=== PATIENT | male | born 1950 | race Caucasian/White ===

== ENCOUNTER 2017-01-31 22:06 | Emergency (ER) | payer MEDICARE ==
[~2017-01-31] VITALS: Ht 180.3 cm; Wt 93.8 kg
[~2017-01-31 22:06] MED LIST: ASPIRIN LOW DOS81 MG OR; BAYER ASPIRIN E81 MG PO; FLAX OIL; FLEXERIL PO; LISINOPRIL10 MG; LORTAB 1010 MG PO; MEDDOSEPAK PO; METOPROL TAR25 MG PO; METOPROLOL TART50 MG OR; PRAVASTATIN20 MG; SAW PALMETT3 OR; ZESTRIL/PRI20 MG/TAB PO
[2017-01-31] MEDS ORDERED: LOPRESSOR25 MG PO (22:28)
[2017-01-31 23:10] VITALS: BP 144/86
== END 2017-01-31 23:10 | disposition home or self-care (01) ==
LOC: ED 22:06
DX: J02.9 Acute pharyngitis, unspecified (principal); Z79.899 Other long term (current) drug therapy; R59.0 Localized enlarged lymph nodes

== ENCOUNTER 2017-06-07 09:37 | Emergency (ER) | payer MEDICARE ==
[~2017-06-07] VITALS: Ht 180.3 cm; Wt 100.0 kg
[~2017-06-07 09:37] MED LIST changes: +LOPRESSOR25 MG PO; +MORPHINE SUL30 MG PO; +TAMSULOSIN0.4 MG PO
[2017-06-07 10:17] VITALS: BP 160/82
== END 2017-06-07 10:23 | disposition home or self-care (01) ==
LOC: ED 09:37
DX: R19.7 Diarrhea, unspecified (principal); R19.5 Other fecal abnormalities

== ENCOUNTER 2018-01-02 17:05 | Inpatient (IN) | payer MEDICARE ==
[~2018-01-02] VITALS: Ht 180.3 cm; Wt 97.0 kg
[~2018-01-02 17:05] MED LIST changes: +HEPARIN LOC1 UNIT/ML IV; +SAW PALMETTO1 CAP PO; -ZESTRIL/PRI20 MG/TAB PO; +ZESTRIL/PRIN5 MG/TA1 PO
[2018-01-02] MEDS ORDERED: ZITHROMAX Z-PA250 MG PO (18:03)
[2018-01-02 18:11] LABS: HEMATOCRIT 30.6 % (39.0-50.0); HEMOGLOBIN 9.9 g/dl (14.0-18.0); IMMATURE GRANULOCYTES 0.5 % (0.0-1.0); MEAN CELL VOLUME 77.5 fL CALC (80.0-100.0); MEAN CORPUSCULAR HGB 25.1 pG CALC (26.0-32.0); MEAN CORPUSCULAR HGB CONC 32.4 g/L CALC (32.0-36.0); NEUT# 8.89 thou/uL (1.82-7.42); RED BLOOD COUNT 3.95 mill/uL (4.70-6.10); RED CELL DISTRI WIDTH 13.5 % (11.5-15.5)
[2018-01-02 18:47] LABS: INFLUENZA A NONE DETECTED (NONE DETECT); INFLUENZA B NONE DETECTED (NONE DETECT)
[2018-01-02 19:30] LABS: BUN 24 mg/dL (8-23); BUN/CREATININE RATIO 24 (12-20 (CALC)); CARBON DIOXIDE 25 mmol/l (22-30); CHLORIDE 88 mmol/l (95-108); GFR > 60 ML/MIN (>=60 (CALC)); GFR FOR AFR.AMER. > 60 ML/MIN (>=60 (CALC)); POTASSIUM 4.4 mmol/l (3.5-5.1)
[2018-01-02 19:35] LABS: ANION GAP 15 (6-22 (CALC)); SODIUM 124 mmol/l (137-146)
[2018-01-02 20:29] LABS: URINE BILIRUBIN - DIPSTICK NEGATIVE (NEGATIVE); URINE BLOOD DIPSTICK NEGATIVE (NEGATIVE); URINE COLOR YELLOW; URINE GLUCOSE - DIPSTICK NEGATIVE (NEGATIVE); URINE KETONE NEGATIVE (NEGATIVE); URINE LEUK ESTERASE NEGATIVE (NEGATIVE); URINE NITRITE - DIPSTICK NEGATIVE (Negative); URINE PROTEIN - DIPSTICK NEGATIVE (NEG-TRACE); URINE UROBILINOGEN - DIPSTICK 0.2 E.U./dL (0.2)
[2018-01-02 20:30] LABS: URINE CLARITY CLEAR
[2018-01-02 21:25] VITALS: BP 160/82
[2018-01-03 00:08] VITALS: BP 131/72
[2018-01-03 04:05] VITALS: BP 139/83
[2018-01-03 08:10] VITALS: BP 173/81
[2018-01-03 09:43] LABS: HEMATOCRIT 30.2 % (39.0-50.0); HEMOGLOBIN 9.6 g/dl (14.0-18.0); IMMATURE GRANULOCYTES 0.4 % (0.0-1.0); MEAN CELL VOLUME 78.2 fL CALC (80.0-100.0); MEAN CORPUSCULAR HGB 24.9 pG CALC (26.0-32.0); MEAN CORPUSCULAR HGB CONC 31.8 g/L CALC (32.0-36.0); NEUT# 7.21 thou/uL (1.82-7.42); RED BLOOD COUNT 3.86 mill/uL (4.70-6.10); RED CELL DISTRI WIDTH 13.8 % (11.5-15.5)
[2018-01-03 10:02] LABS: ANION GAP 13 (6-22 (CALC)); BUN 18 mg/dL (8-23); BUN/CREATININE RATIO 18 (12-20 (CALC)); CARBON DIOXIDE 27 mmol/l (22-30); CHLORIDE 94 mmol/l (95-108); GFR > 60 ML/MIN (>=60 (CALC)); GFR FOR AFR.AMER. > 60 ML/MIN (>=60 (CALC)); MAGNESIUM 1.5 mg/dL (1.6-2.3); POTASSIUM 4.7 mmol/l (3.5-5.1); SODIUM 129 mmol/l (137-146)
[2018-01-03 11:55] VITALS: BP 165/86
[2018-01-03 16:13] VITALS: BP 147/74
[2018-01-03 19:00] VITALS: BP 138/74
[2018-01-04 00:21] VITALS: BP 103/52
[2018-01-04 04:34] VITALS: BP 141/83
[2018-01-04 08:07] VITALS: BP 152/67
[2018-01-04 09:47] LABS: HEMATOCRIT 32.5 % (39.0-50.0); HEMOGLOBIN 10.5 g/dl (14.0-18.0); IMMATURE GRANULOCYTES 0.5 % (0.0-1.0); MEAN CELL VOLUME 77.8 fL CALC (80.0-100.0); MEAN CORPUSCULAR HGB 25.1 pG CALC (26.0-32.0); MEAN CORPUSCULAR HGB CONC 32.3 g/L CALC (32.0-36.0); NEUT# 8.31 thou/uL (1.82-7.42); RED BLOOD COUNT 4.18 mill/uL (4.70-6.10); RED CELL DISTRI WIDTH 13.8 % (11.5-15.5)
[2018-01-04 09:58] LABS: ALBUMIN 3.2 g/dL (3.2-5.0); ALKALINE PHOSPHATASE 78 u/l (38-126); ANION GAP 18 (6-22 (CALC)); BILIRUBIN, TOTAL 0.2 mg/dL (0.0-1.4); BUN 22 mg/dL (8-23); BUN/CREATININE RATIO 21 (12-20 (CALC)); CARBON DIOXIDE 25 mmol/l (22-30); CHLORIDE 90 mmol/l (95-108); CREATININE 1.1 mg/dL (0.7-1.3); GFR > 60 ML/MIN (>=60 (CALC)); GFR FOR AFR.AMER. > 60 ML/MIN (>=60 (CALC)); POTASSIUM 4.8 mmol/l (3.5-5.1); SGOT/AST 17 u/l (19-48); SGPT/ALT 35 u/l (11-66); SODIUM 128 mmol/l (137-146); TOTAL PROTEIN 6.1 g/dL (6.3-8.2)
[2018-01-04 11:08] VITALS: BP 149/76
[2018-01-04 15:30] VITALS: BP 144/83
[2018-01-04 18:22] VITALS: BP 177/83
[2018-01-05 00:19] VITALS: BP 139/70
[2018-01-05 05:16] LABS: HEMATOCRIT 30.4 % (39.0-50.0); HEMOGLOBIN 9.9 g/dl (14.0-18.0); IMMATURE GRANULOCYTES 0.8 % (0.0-1.0); MEAN CELL VOLUME 77.6 fL CALC (80.0-100.0); MEAN CORPUSCULAR HGB 25.3 pG CALC (26.0-32.0); MEAN CORPUSCULAR HGB CONC 32.6 g/L CALC (32.0-36.0); NEUT# 16.78 thou/uL (1.82-7.42); RED BLOOD COUNT 3.92 mill/uL (4.70-6.10); RED CELL DISTRI WIDTH 13.7 % (11.5-15.5)
[2018-01-05 05:24] LABS: ANION GAP 15 (6-22 (CALC)); BUN 27 mg/dL (8-23); BUN/CREATININE RATIO 24 (12-20 (CALC)); CARBON DIOXIDE 26 mmol/l (22-30); CHLORIDE 92 mmol/l (95-108); CREATININE 1.1 mg/dL (0.7-1.3); GFR > 60 ML/MIN (>=60 (CALC)); GFR FOR AFR.AMER. > 60 ML/MIN (>=60 (CALC)); MAGNESIUM 1.9 mg/dL (1.6-2.3); POTASSIUM 5.1 mmol/l (3.5-5.1); SODIUM 128 mmol/l (137-146)
[2018-01-05 06:42] VITALS: BP 130/70
[2018-01-05 07:26] VITALS: BP 148/84
[2018-01-05 11:00] VITALS: BP 156/77
[2018-01-05] MEDS ORDERED: PREDNISONE10 MG PO (13:00)
[2018-01-05] MEDS ORDERED: LEVAQUIN750 MG PO (13:04)
[2018-01-05] MEDS ORDERED: FLORASTOR250 M1 PO (13:04)
[2018-01-05] MEDS ORDERED: DUONEB IN (13:05)
[2018-01-05] MEDS ORDERED: NAPROXEN500 MG PO (13:54)
== END 2018-01-05 15:00 | disposition home or self-care (01) | DRG 193 ==
LOC: ED 17:05 → ED-I 20:00 → ED 20:14 → MS2 20:15
PROVIDERS: Family Medicine; Nurse Practitioner Family; ADMIT Internal Medicine; ATTEND Internal Medicine
PROC: 0W993ZZ Drainage of Right Pleural Cavity, Percutaneous Approach (ICD-10-PCS; principal; 2018-01-03)
DX: J18.9 Pneumonia, unspecified organism (principal); J96.20 Acute and chronic respiratory failure, unspecified whether with hypoxia or hypercapnia; C83.19 Mantle cell lymphoma, extranodal and solid organ sites; J91.8 Pleural effusion in other conditions classified elsewhere; E87.1 Hypo-osmolality and hyponatremia; I10 Essential (primary) hypertension; I25.10 Atherosclerotic heart disease of native coronary artery without angina pectoris; N40.0 Benign prostatic hyperplasia without lower urinary tract symptoms; G89.29 Other chronic pain; M25.512 Pain in left shoulder; Y95 Nosocomial condition; Z95.5 Presence of coronary angioplasty implant and graft; Z87.891 Personal history of nicotine dependence; Z90.2 Acquired absence of lung [part of]; Z79.899 Other long term (current) drug therapy
CPT/HCPCS: G0378; J1956; J3475; Q9967

== ENCOUNTER 2018-02-04 20:17 | Emergency (ER) | payer MEDICARE ==
[~2018-02-04] VITALS: Ht 180.3 cm; Wt 93.1 kg
[~2018-02-04 20:17] MED LIST changes: +DUONEB IN; +FLORASTOR250 M1 PO; +LEVAQUIN750 MG PO; +NAPROXEN500 MG PO; +PREDNISONE10 MG PO; +ZITHROMAX Z-PA250 MG PO
--- NOTE | 2018-02-04 20:51 | NUR ---
RESPIRATORY TREATMENT GIVEN USING MUOTH PEICE. BREATHING TECH. FOR GOOD DEPOSITION TO THE LUNGS.
[2018-02-04 21:17] LABS: HEMATOCRIT 30.5 % (39.0-50.0); HEMOGLOBIN 9.9 g/dl (14.0-18.0); IMMATURE GRANULOCYTES 1.6 % (0.0-1.0); MEAN CORPUSCULAR HGB CONC 32.5 g/L CALC (32.0-36.0); NEUT# 11.88 thou/uL (1.82-7.42); RED BLOOD COUNT 3.96 mill/uL (4.70-6.10); RED CELL DISTRI WIDTH 15.4 % (11.5-15.5)
[2018-02-04 21:31] LABS: ALBUMIN 3.4 g/dL (3.2-5.0); ALKALINE PHOSPHATASE 78 u/l (38-126); ANION GAP 15 (6-22 (CALC)); BILIRUBIN, TOTAL 0.2 mg/dL (0.0-1.4); BUN 27 mg/dL (8-23); BUN/CREATININE RATIO 29 (12-20 (CALC)); CARBON DIOXIDE 26 mmol/l (22-30); CHLORIDE 87 mmol/l (95-108); CREATININE 0.9 mg/dL (0.7-1.3); GFR > 60 ML/MIN (>=60 (CALC)); GFR FOR AFR.AMER. > 60 ML/MIN (>=60 (CALC)); LIPASE 184 u/l (23-300); POTASSIUM 4.9 mmol/l (3.5-5.1); SGOT/AST 17 u/l (19-48); SGPT/ALT 34 u/l (11-66); SODIUM 123 mmol/l (137-146); TOTAL PROTEIN 6.4 g/dL (6.3-8.2)
[2018-02-04 21:43] LABS: MYOGLOBIN 30 ng/mL (0 - 121)
[2018-02-04 22:30] VITALS: BP 100/73
== END 2018-02-04 22:40 | disposition home or self-care (01) ==
LOC: ED 20:17
DX: J44.1 Chronic obstructive pulmonary disease with (acute) exacerbation (principal); I10 Essential (primary) hypertension; C34.90 Malignant neoplasm of unspecified part of unspecified bronchus or lung; Z92.21 Personal history of antineoplastic chemotherapy; Z92.3 Personal history of irradiation; R06.02 Shortness of breath

== ENCOUNTER 2018-02-09 11:36 | Inpatient (IN) | payer MEDICARE ==
[~2018-02-09] VITALS: Ht 180.3 cm; Wt 91.1 kg
[2018-02-09 11:59] LABS: HEMATOCRIT 32.3 % (39.0-50.0); HEMOGLOBIN 10.2 g/dl (14.0-18.0); IMMATURE GRANULOCYTES 0.9 % (0.0-1.0); MEAN CORPUSCULAR HGB 24.9 pG CALC (26.0-32.0); MEAN CORPUSCULAR HGB CONC 31.6 g/L CALC (32.0-36.0); NEUT# 9.36 thou/uL (1.82-7.42); RED BLOOD COUNT 4.09 mill/uL (4.70-6.10); RED CELL DISTRI WIDTH 15.1 % (11.5-15.5)
[2018-02-09 12:27] LABS: ALBUMIN 3.5 g/dL (3.2-5.0); ALKALINE PHOSPHATASE 85 u/l (38-126); ANION GAP 17 (6-22 (CALC)); BILIRUBIN, TOTAL 0.3 mg/dL (0.0-1.4); BUN 23 mg/dL (8-23); BUN/CREATININE RATIO 26 (12-20 (CALC)); CARBON DIOXIDE 29 mmol/l (22-30); CHLORIDE 89 mmol/l (95-108); CREATININE 0.9 mg/dL (0.7-1.3); GFR > 60 ML/MIN (>=60 (CALC)); GFR FOR AFR.AMER. > 60 ML/MIN (>=60 (CALC)); MAGNESIUM 1.8 mg/dL (1.6-2.3); POTASSIUM 4.9 mmol/l (3.5-5.1); SGOT/AST 13 u/l (19-48); SGPT/ALT 34 u/l (11-66); TOTAL PROTEIN 6.5 g/dL (6.3-8.2)
[2018-02-09 12:30] VITALS: BP 134/87
[2018-02-09 12:51] LABS: SODIUM 130 mmol/l (137-146)
[2018-02-09] MEDS ORDERED: HYDROCODONE/ACE1 TAB PO (14:09)
[2018-02-09] MEDS ORDERED: MIRALAX3350 NF PO ×2 (14:13→17:54)
[2018-02-09] MEDS ORDERED: LISINOPRIL20 M1 PO (14:20)
[2018-02-09] MEDS ORDERED: ONDANSETRON HCL8 MG PO (14:21)
[2018-02-09] MEDS ORDERED: FINASTERIDE5 MG PO (14:22)
[2018-02-09] MEDS ORDERED: SYMBICORT1 AE1 IN (14:23)
[2018-02-09] MEDS ORDERED: DEXAMETHASON2 MG PO (14:27)
[2018-02-09 14:35] VITALS: BP 134/87
[2018-02-09] MEDS ORDERED: GENERLAC10 GM/15 M PO (14:52)
[2018-02-09 16:00] VITALS: BP 150/86
[2018-02-09 18:25] VITALS: BP 148/80
[2018-02-09 23:25] VITALS: BP 144/61
[2018-02-10 03:55] VITALS: BP 133/82
[2018-02-10 05:56] LABS: HEMATOCRIT 31.5 % (39.0-50.0); HEMOGLOBIN 10.3 g/dl (14.0-18.0); MEAN CELL VOLUME 76.8 fL CALC (80.0-100.0); MEAN CORPUSCULAR HGB 25.1 pG CALC (26.0-32.0); MEAN CORPUSCULAR HGB CONC 32.7 g/L CALC (32.0-36.0); NEUT# 11.11 thou/uL (1.82-7.42); RED BLOOD COUNT 4.1 mill/uL (4.70-6.10); RED CELL DISTRI WIDTH 15.1 % (11.5-15.5)
[2018-02-10 06:17] LABS: BUN 24 mg/dL (8-23); BUN/CREATININE RATIO 25 (12-20 (CALC)); CARBON DIOXIDE 30 mmol/l (22-30); CHLORIDE 89 mmol/l (95-108); GFR > 60 ML/MIN (>=60 (CALC)); GFR FOR AFR.AMER. > 60 ML/MIN (>=60 (CALC)); MAGNESIUM 1.8 mg/dL (1.6-2.3); SODIUM 129 mmol/l (137-146)
[2018-02-10 06:39] LABS: URINE BILIRUBIN - DIPSTICK NEGATIVE (NEGATIVE); URINE BLOOD DIPSTICK NEGATIVE (NEGATIVE); URINE CLARITY CLEAR; URINE COLOR YELLOW; URINE GLUCOSE - DIPSTICK NEGATIVE (NEGATIVE); URINE KETONE NEGATIVE (NEGATIVE); URINE LEUK ESTERASE NEGATIVE (Negative); URINE NITRITE - DIPSTICK NEGATIVE (Negative); URINE PH 6.5 (4.5-8.0); URINE PROTEIN - DIPSTICK TRACE mg/dL (NEG-TRACE); URINE UROBILINOGEN - DIPSTICK 0.2 E.U./dL (0.2)
[2018-02-10 06:39] LABS: ANION GAP 16 (6-22 (CALC))
[2018-02-10 06:40] LABS: POTASSIUM 5.6 mmol/l (3.5-5.1)
[2018-02-10 08:00] VITALS: BP 164/81
[2018-02-10 12:00] VITALS: BP 165/82
[2018-02-10 19:30] VITALS: BP 158/78
[2018-02-10 23:30] VITALS: BP 144/83
[2018-02-11 04:30] VITALS: BP 157/83
[2018-02-11 08:08] LABS: HEMATOCRIT 30.8 % (39.0-50.0); IMMATURE GRANULOCYTES 0.8 % (0.0-1.0); MEAN CELL VOLUME 77.6 fL CALC (80.0-100.0); MEAN CORPUSCULAR HGB 25.2 pG CALC (26.0-32.0); MEAN CORPUSCULAR HGB CONC 32.5 g/L CALC (32.0-36.0); NEUT# 13.27 thou/uL (1.82-7.42); RED BLOOD COUNT 3.97 mill/uL (4.70-6.10); RED CELL DISTRI WIDTH 15.4 % (11.5-15.5)
[2018-02-11 08:15] LABS: ALBUMIN 3.3 g/dL (3.2-5.0); BUN 33 mg/dL (8-23); CARBON DIOXIDE 29 mmol/l (22-30); CHLORIDE 91 mmol/l (95-108); GFR > 60 ML/MIN (>=60 (CALC)); GFR FOR AFR.AMER. > 60 ML/MIN (>=60 (CALC)); POTASSIUM 4.8 mmol/l (3.5-5.1); SODIUM 131 mmol/l (137-146)
[2018-02-11 08:37] VITALS: BP 125/80
[2018-02-11] MEDS ORDERED: DUONEB IN (11:14)
[2018-02-11] MEDS ORDERED: DILTIAZEM30 MG PO (11:15)
[2018-02-11] MEDS ORDERED: HYDROCODONE/ACE1 TAB PO (11:16)
[2018-02-11] MEDS ORDERED: LEVAQUIN750 M1 PO (11:20)
[2018-02-11] MEDS ORDERED: METRONIDAZOL500 MG PO (11:20)
[2018-02-11] MEDS ORDERED: PREDNISONE10 MG PO (11:21)
== END 2018-02-11 15:30 | disposition home or self-care (01) | DRG 189 ==
LOC: MS2 11:36
PROVIDERS: Internal Medicine Nephrology; Nurse Practitioner Family; ADMIT Internal Medicine; ATTEND Internal Medicine
PROC: 0W993ZZ Drainage of Right Pleural Cavity, Percutaneous Approach (ICD-10-PCS; principal; 2018-02-10)
DX: J96.20 Acute and chronic respiratory failure, unspecified whether with hypoxia or hypercapnia (principal); J18.9 Pneumonia, unspecified organism; C83.19 Mantle cell lymphoma, extranodal and solid organ sites; J91.8 Pleural effusion in other conditions classified elsewhere; E87.1 Hypo-osmolality and hyponatremia; I10 Essential (primary) hypertension; G89.3 Neoplasm related pain (acute) (chronic); Z92.3 Personal history of irradiation; Z90.2 Acquired absence of lung [part of]; Z79.899 Other long term (current) drug therapy; Z92.21 Personal history of antineoplastic chemotherapy
CPT/HCPCS: J0692; Q9967

== ENCOUNTER 2018-02-14 20:56 | Observation (INO) | payer MEDICARE ==
[~2018-02-14] VITALS: Ht 180.3 cm; Wt 93.3 kg
[~2018-02-14 20:56] MED LIST changes: +DEXAMETHASON2 MG PO; +DILTIAZEM30 MG PO; +FINASTERIDE5 MG PO; +GENERLAC10 GM/15 M PO; +HYDROCODONE/ACE1 TAB PO; +LEVAQUIN750 M1 PO; +LISINOPRIL20 M1 PO; +METRONIDAZOL500 MG PO; +MIRALAX3350 NF PO; +ONDANSETRON HCL8 MG PO; +SYMBICORT1 AE1 IN
[2018-02-14 22:06] LABS: HEMATOCRIT 34.3 % (39.0-50.0); HEMOGLOBIN 11.2 g/dl (14.0-18.0); IMMATURE GRANULOCYTES 1.9 % (0.0-1.0); MEAN CELL VOLUME 77.3 fL CALC (80.0-100.0); MEAN CORPUSCULAR HGB 25.2 pG CALC (26.0-32.0); MEAN CORPUSCULAR HGB CONC 32.7 g/L CALC (32.0-36.0); NEUT# 15.26 thou/uL (1.82-7.42); RED BLOOD COUNT 4.44 mill/uL (4.70-6.10); RED CELL DISTRI WIDTH 15.4 % (11.5-15.5)
[2018-02-14 22:08] LABS: URINE BILIRUBIN - DIPSTICK NEGATIVE (NEGATIVE); URINE BLOOD DIPSTICK TRACE-LYSED (NEGATIVE); URINE COLOR YELLOW; URINE GLUCOSE - DIPSTICK NEGATIVE (NEGATIVE); URINE KETONE NEGATIVE (NEGATIVE); URINE LEUK ESTERASE NEGATIVE (NEGATIVE); URINE NITRITE - DIPSTICK NEGATIVE (Negative); URINE PROTEIN - DIPSTICK NEGATIVE (NEG-TRACE); URINE SPECIFIC GRAVITY 1.025; URINE UROBILINOGEN - DIPSTICK 0.2 E.U./dL (0.2)
[2018-02-14 22:11] LABS: URINE CLARITY CLEAR
[2018-02-14 22:32] LABS: ALBUMIN 3.4 g/dL (3.2-5.0); ALKALINE PHOSPHATASE 96 u/l (38-126); ANION GAP 15 (6-22 (CALC)); BILIRUBIN, TOTAL 0.3 mg/dL (0.0-1.4); BUN 33 mg/dL (8-23); BUN/CREATININE RATIO 35 (12-20 (CALC)); CARBON DIOXIDE 28 mmol/l (22-30); CHLORIDE 90 mmol/l (95-108); CREATININE 0.9 mg/dL (0.7-1.3); GFR > 60 ML/MIN (>=60 (CALC)); GFR FOR AFR.AMER. > 60 ML/MIN (>=60 (CALC)); POTASSIUM 4.5 mmol/l (3.5-5.1); SGOT/AST 14 u/l (19-48); SGPT/ALT 39 u/l (11-66); SODIUM 128 mmol/l (137-146); TOTAL PROTEIN 6.3 g/dL (6.3-8.2)
[2018-02-14 22:44] LABS: MYOGLOBIN 40 ng/mL (0 - 121)
[2018-02-15 01:07] VITALS: BP 170/92
[2018-02-15 05:00] VITALS: BP 158/78
[2018-02-15 09:09] VITALS: BP 175/97
[2018-02-15 13:45] VITALS: BP 180/100
[2018-02-15 15:45] VITALS: BP 160/70
[2018-02-15 20:19] VITALS: BP 131/58
[2018-02-16 00:25] VITALS: BP 123/78
[2018-02-16 03:45] VITALS: BP 149/81
[2018-02-16 08:00] VITALS: BP 159/103
[2018-02-16 08:38] LABS: HEMATOCRIT 34.6 % (39.0-50.0); HEMOGLOBIN 11.3 g/dl (14.0-18.0); MEAN CELL VOLUME 78.1 fL CALC (80.0-100.0); MEAN CORPUSCULAR HGB 25.5 pG CALC (26.0-32.0); MEAN CORPUSCULAR HGB CONC 32.7 g/L CALC (32.0-36.0); RED BLOOD COUNT 4.43 mill/uL (4.70-6.10); RED CELL DISTRI WIDTH 15.9 % (11.5-15.5)
[2018-02-16 09:09] LABS: ANION GAP 16 (6-22 (CALC)); BUN 53 mg/dL (8-23); BUN/CREATININE RATIO 57 (12-20 (CALC)); CARBON DIOXIDE 29 mmol/l (22-30); CHLORIDE 88 mmol/l (95-108); CREATININE 0.9 mg/dL (0.7-1.3); GFR > 60 ML/MIN (>=60 (CALC)); GFR FOR AFR.AMER. > 60 ML/MIN (>=60 (CALC)); SODIUM 128 mmol/l (137-146)
[2018-02-16] MEDS ORDERED: ALPRAZOLAM0.5 M2 PO (12:50)
[2018-02-16] MEDS ORDERED: MORPHINE SUL30 M5 PO (12:50)
[2018-02-16] MEDS ORDERED: BIOTUSSIN PO (12:50)
[2018-02-16] MEDS ORDERED: LEVAQUIN750 M1 PO (12:50)
[2018-02-16] MEDS ORDERED: BISACODYL10 M2 PR (12:50)
[2018-02-16] MEDS ORDERED: LASIX20 MG PO (12:51)
[2018-02-16 17:15] VITALS: BP 130/80
== END 2018-02-16 17:50 | disposition home health service (06) ==
LOC: ED 20:56 → ED-I 22:32 → ED 22:58 → MS2 22:59
PROVIDERS: Emergency Medicine; Internal Medicine; ADMIT Internal Medicine; ATTEND Internal Medicine
DX: J96.21 Acute and chronic respiratory failure with hypoxia (principal); J44.0 Chronic obstructive pulmonary disease with (acute) lower respiratory infection; J18.9 Pneumonia, unspecified organism; J91.8 Pleural effusion in other conditions classified elsewhere; C83.19 Mantle cell lymphoma, extranodal and solid organ sites; G89.3 Neoplasm related pain (acute) (chronic); I10 Essential (primary) hypertension; E87.1 Hypo-osmolality and hyponatremia; N40.0 Benign prostatic hyperplasia without lower urinary tract symptoms; F41.9 Anxiety disorder, unspecified; Z92.3 Personal history of irradiation; Z79.899 Other long term (current) drug therapy; Z92.21 Personal history of antineoplastic chemotherapy; Z90.2 Acquired absence of lung [part of]; Z66 Do not resuscitate